=== PATIENT | female | born 1975 ===

== ENCOUNTER 2025-06-16 08:00 | Day surgery (SDC) | payer OTHER ==
[2025-06-10 07:56] VITALS: BP 140/85
[2025-06-10 08:02] LABS: BASO % 0.2 % (0.1-1.2); EOS # 0.04 (0.04-0.54); EOS % 0.7 % (0.7-7.0); LYMPH # 0.93 (1.18-3.74); LYMPH % 16.8 % (19.3-53.1); MEAN PLATELET VOLUME 10.50 fl (9.4-12.4); MONO # 0.29 (0.24-0.82); MONO % 5.2 % (4.7-12.5); NEUT # 4.25 (1.56-6.13); NEUT % 76.9 % (34.0-71.1); RED CELL DISTRIBUTION WIDTH 11.5 % (11.6-14.4)
[2025-06-10 08:14] LABS: URINE APPEARANCE Clear; URINE BILIRRUBIN Negative (NEGATIVE); URINE BLOOD Negative; URINE COLOR Yellow; URINE GLUCOSE Negative (NEGATIVE); URINE KETONE Trace (NEGATIVE); URINE LEUKOCYTE Small; URINE NITRATE Negative; URINE PROTEIN Trace (NEGATIVE); URINE UROBILINOGEN 0.2 E.U./dl
[2025-06-10 08:18] LABS: URINE BACTERIA 1834.7 uL (0.0-1933); URINE EPITHELIAL CELLS 41.6 uL (0.0-38.8); URINE RBC 5.8 uL (0.0-20.8); URINE WBC 13.9 uL (0.0-23.2)
[2025-06-10 08:28] LABS: URINE CAST 0.14 uL (0.0-1.40)
[2025-06-10 08:41] LABS: INR < 0.93
[2025-06-10 08:52] LABS: ALT/SGPT 24.0 U/L (12-78); AST/SGOT 23.0 U/L (15-37); BILIRUBIN TOTAL 0.43 mg/dL (0.3-1.2); BUN CREA RATIO 36.0 (7.0-25.0); CREATININE SERUM 0.59 mg/dL (0.55-1.02); GFR 107.89; GLOBULINA 3.9 G/DL (2.4-3.5); GLUCOSE FASTING 97.0 mg/dL (65-100); OSMOLALITY SERUM 288.0 MOSM/KG (275-295)
[~2025-06-16] VITALS: Ht 157.5 cm; Wt 71.2 kg
[~2025-06-16 08:00] MED LIST: LOSARTAN POTASS50 MG; MINOXIDIL 2.5 MG; PLAQUENIL 200MG; SYNTHROID88 MCG; [UNRECOGNIZED DRUG - REMARK]
[2025-06-16] MEDS ORDERED: CEFAZOLIN SODIUM 1,000 MG VIAL ONE (09:07)
[2025-06-16] MEDS ORDERED: POVIDONE-IODINE 118 ML BOTT TOP ONE ×2 (11:00→11:30)
[2025-06-16] MEDS ORDERED: CHLORHEXIDINE GLUCONATE 120 ML BOTTLE TOP ONE ×2 (11:00→11:30)
[2025-06-16] MEDS ORDERED: CEFAZOLIN SODIUM 1,000 MG VIAL IV ONE (11:30)
[2025-06-16] MEDS ORDERED: ENALAPRILAT DIHYDRATE 1.25 MG/ML VIAL IV ONE (12:23)
[2025-06-16] MEDS ORDERED: DOXYCYCLINE HY100 M2 PO (12:42)
[2025-06-16] MEDS ORDERED: IBU600 MG PO (12:42)
== END 2025-06-16 16:15 | disposition home or self-care (01) ==
LOC: CIR.AMB 08:00
PROVIDERS: ATTEND Obstetrics & Gynecology
DX: D25.0 Submucous leiomyoma of uterus (principal); N95.0 Postmenopausal bleeding; N84.0 Polyp of corpus uteri; N87.0 Mild cervical dysplasia